=== PATIENT | female | born 1960 | race African-American/Black ===

== ENCOUNTER 2024-04-22 04:23 | Day surgery (SDC) | payer OTHER ==
[2024-04-19 17:49] VITALS: BMI 32.1
[2024-04-22] MEDS ORDERED: PROPOFOL 40 ML ONE (12:48)
[2024-04-22] MEDS ORDERED: LIDOCAINE HCL/PF 2% SDV 5ML VIAL ONE (12:48)
[2024-04-22] MEDS ORDERED: MIDAZOLAM HCL 2 MG/2 ML SINGLE DOSE VIAL ONE ×2 (12:48→15:43)
[2024-04-22] MEDS ORDERED: PROPOFOL 20 ML ONE (15:43)
[2024-04-22] MEDS ORDERED: ceFAZolin SODIUM 1 GM VIAL ONE (16:30)
[2024-04-22] MEDS ORDERED: oxyCODONE HCL 5 MG TABLET PO PRN (17:03)
[2024-04-22] MEDS ORDERED: ONDANSETRON 4 MG/2 ML VIAL IVPUSH PRN (17:03)
[2024-04-22] MEDS ORDERED: LACTATED RINGERS SOLUTION 1,000 ML IV SCH (17:15)
[2024-04-22] MEDS ORDERED: IBUPROFEN 800 MG/8 ML IJ IVPB PRN (17:48)
[2024-04-22] MEDS ORDERED: IBUPROFEN 600 MG TABLET (FP) PO PRN (17:48)
[2024-04-22] MEDS ORDERED: ACETAMINOPHEN 325 MG TABLET (FP) PO PRN (17:48)
[2024-04-22 19:10] VITALS: RESP 20; TEMP 97.5
[2024-04-22 19:14] VITALS: BP 128/74; PULSE 65
== END 2024-04-22 18:42 | disposition home or self-care (01) ==
LOC: JASU-SURG 04:23
PROVIDERS: ATTEND Obstetrics & Gynecology
PROC: 0UDB7ZZ Extraction of Endometrium, Via Natural or Artificial Opening (ICD-10-PCS; principal; 2024-04-22 16:00)
DX: N92.4 Excessive bleeding in the premenopausal period (principal)
CPT/HCPCS: 82962; 88305-TC; 94760